=== PATIENT | female | born 1950 | race Caucasian/White ===

== ENCOUNTER 2022-06-18 11:24 | Outpatient (REF) | payer MEDICAID, SELFPAY ==
--- NOTE | ~2022-06-18 | XR_ITS ---
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 FINDINGS: The right and left heart borders are obscured which may be related to pericardial fat. Medial portion of the right hemidiaphragm is also obscured. Can't rule out right middle lobe airspace disease. Clinical correlation suggested. Heart normal size. No pneumothorax or pleural effusion. Mediastinal and hilar contours unremarkable. No specific evidence within the upper lobes or superior segments of the lower lobes to suggest acute or chronic tuberculosis. XR/XR chest 2V IMPRESSION: Prominent pericardial fat pads with region of right middle lobe disease not excluded. No hilar or mediastinal lymphadenopathy appreciated and no lesions within the upper lobes and superior segments of the lower lobes identified.
== END 2022-06-18 11:25 | disposition home or self-care (01) ==
LOC: HO.XRAY 11:24
PROVIDERS: PCP Nurse Practitioner Family; Visit Provider Nurse Practitioner Family
DX: R76.12 Nonspecific reaction to cell mediated immunity measurement of gamma interferon antigen response without active tuberculosis (principal)
CPT/HCPCS: 71046

== ENCOUNTER 2023-03-21 08:53 | Outpatient (REF) | payer MEDICAID, SELFPAY | END 2023-03-21 08:54 | disposition home or self-care (01) | LOC: HO.HAP 08:53 | PROVIDERS: Visit Provider Otolaryngology | DX: Z46.1 Encounter for fitting and adjustment of hearing aid (principal); H90.3 Sensorineural hearing loss, bilateral | CPT/HCPCS: 92591; V5275 ==

== ENCOUNTER 2023-04-25 14:54 | Outpatient (REF) | payer MEDICAID, SELFPAY | END 2023-04-25 14:55 | disposition home or self-care (01) | LOC: HO.HAP 14:54 | PROVIDERS: Visit Provider Nurse Practitioner Family | DX: Z46.1 Encounter for fitting and adjustment of hearing aid (principal); H90.3 Sensorineural hearing loss, bilateral | CPT/HCPCS: 92595; V5011; V5020; V5160; V5261; V5264; V5299 ==

== ENCOUNTER 2023-05-19 15:00 | Outpatient (REF) | payer MEDICAID, SELFPAY ==
--- NOTE | 2023-05-19 16:16 | MHC.AU.HA3 ---
Hearing Instrument Follow-Up- Binaural Date of Visit: 05/19/23 Right Ear: Make, Model, Color, Serial Number: Oticon Real 2 miniRITE-R SN: [id number] Color: Silver Alexis Insurance Processing Clerk Repair Warranty: 04/27/2026 Insurance Processing Clerk Loss and Damage Warranty: 04/27/2026 [facility] Service Plan: 04/25/2024 Battery Size: Rechargeable Maintenance Job Titles/Slim Tube: Length 3 Earmold/Dome/CShell/SlimTip:Power mold SN: [id number] Warranty: 04/27/2026 Type of Wax Guard: ProWax Dispensed By: [facility] Date of Fittin04/25/2023 Left Ear: Make, Model, Color, Serial Number: Oticon Real 2 miniRITE-R SN: [id number] Color: Silver Alexis Insurance Processing Clerk Repair Warranty: 04/27/2026 Insurance Processing Clerk Loss and Damage Warranty: 04/27/2026 [facility] Service Plan: 04/25/2024 Battery Size: Rechargeable Maintenance Job Titles/Slim Tube: Length 3 Earmold/Dome/CShell/SlimTip: Power mold SN: [id number] Warranty: 04/27/2026 Type of Wax Guard: ProWax Dispensed By: [facility] Date of Fittin04/25/2023 Follow-Up Summary: Milton was accompanied by her daughter who reported that Milton has not been wearing the hearing aids due to significant feedback. Data logging showed <1 hour of use per day. Hearing aids were upon arrival. Charged for about 15 minutes in office and able to complete appointment. Reprogrammed the hearing aids from scratch and performed real ear measures to more appropriately match target. Decreased to AM1 due to overall loudness and then decreased low frequencies even further due to sound of own voice. Discussed acclimatization period and importance of daily, consistent use. Ran feedback analyzer with Teofilos hijab on. Reinstructed on full insertion of ear molds which may have been causing feedback as well. Left mold has some difficulty inserting fully due to shape of ear canal; however, no feedback noted in office. Reinstructed on cleaning and changing wax guard. Recommended wax removal, especially in left ear, which will help with feedback as well. Milton's daughter reported that she has an ENT appointment next month for wax removal. Milton and her daughter requested another follow up to check in after having more time to wear the hearing aids without feedback. Recommendations: An additional follow-up was scheduled to monitor progress. Diagnosis Code(s): Primary Diagnosis: H90.3 Bilateral Sensorineural Hearing Loss Signature: Provider: Harjinder Mccartney, LISA-A
== END 2023-05-19 15:01 | disposition home or self-care (01) ==
LOC: HO.HAP 15:00
PROVIDERS: Visit Provider Nurse Practitioner Family
DX: Z13.89 Encounter for screening for other disorder (principal)